=== PATIENT | female | born 1980 | race African-American/Black ===

== ENCOUNTER 2016-12-18 11:39 | Emergency (ER) | payer OTHER ==
[~2016-12-18] VITALS: Ht 167.6 cm; Wt 83.9 kg
[2016-12-18 11:39] VITALS: BP 116/73
[2016-12-18] MEDS ORDERED: KENALOG60 GM TP (12:10)
[2016-12-18] MEDS ORDERED: PREDNISONE 20 M20 MG PO (12:10)
== END 2016-12-18 12:41 | disposition home or self-care (01) ==
LOC: ER 11:39
DX: L40.9 Psoriasis, unspecified (principal)